=== PATIENT | male | born 1965 | race Hispanic/Latino ===

== ENCOUNTER → 2023-06-26 12:35 | Outpatient (REF) | payer BC, SELFPAY | LOC: HWRAD 12:35 | PROVIDERS: ATTENDING PHYSICIAN Specialist; FAMILY PHYSICIAN Family Medicine | DX: R31.9 Hematuria, unspecified (principal) | CPT/HCPCS: 76770 ==

== ENCOUNTER 2023-07-16 20:02 | Emergency (ER) | payer BC, SELFPAY ==
[2023-07-16 20:07] VITALS: BP 134/95
[2023-07-16 20:26] LABS: % Basophils 0.5 % (0-2); % Eosinophils 0.9 % (0-6); % Immature Granulocytes 0.3 % (0-0.5); % Lymphocytes 25.3 % (20.5-51.1); % Monocytes 9.2 % (1.7-9.3); % Neutrophils 63.8 % (42.2-75.2); Absolute Eosinophils 0.1 10^3/uL (0-0.7); Absolute Lymphocytes 2.2 10^3/uL (1.2-3.4); Absolute Monocytes 0.8 10^3/uL (0.1-0.6); Absolute Neutrophils 5.6 10^3/uL (1.4-6.5); Hemoglobin 16.6 g/dL (13.0-18.0); Mean Corp Hgb Conc. 33.9 g/dL (33.0-37.0); Mean Corpuscular Hgb 29.9 pg (27.0-31.0); Mean Corpuscular Volume 88.1 fL (80.0-94.0); Mean Platelet Volume 9.3 fL (7.4-10.4); Nucleated Red Blood Cells % 0 % (-); Platelet Count 313 10^3/uL (130-400); Red Blood Cell Count 5.56 10^6/uL (4.70-6.10); Red Cell Dist. Width 12.2 % (11.5-14.5); White Blood Cell Count 8.7 10^3/uL (4.8-10.8)
[2023-07-16 20:28] LABS: Urine Albumin 2+ (Neg - Trace); Urine Bilirubin 1+ (Negative); Urine Character Bloody (Clear); Urine Color Red; Urine Glucose Negative (Negative); Urine Ketone 1+ (Negative); Urine Leukocyte 1+ (Negative); Urine Nitrite Negative (Negative); Urine Occult Blood 4+ (Negative); Urine Specific Gravity 1.025 (<1.030); Urine Urobilinogen Negative (Neg - 1+)
[2023-07-16 20:33] LABS: Urine Squamous Cell 0-2 /LPF (Few)
[2023-07-16 20:38] LABS: Urine Red Blood Cell >100 /HPF (0-2)
[2023-07-16 21:08] LABS: ALT (SGPT) 19 U/L (0-50); AST (SGOT) 31 U/L (17-59); Albumin 4.7 g/dl (3.5-5.0); Alkaline Phosphatase 92 U/L (38-126); Blood Urea Nitrogen 28 mg/dl (9-20); Carbon Dioxide 26 mmol/L (22-30); Chloride 100 mmol/L (98-107); Glucose 97 mg/dl (70-99); Sodium 134 mmol/L (135-145); Total Bilirubin 0.8 mg/dl (0.2-1.3); Total Protein 7.6 g/dl (6.3-8.2); eGFR 53.96
[2023-07-17 00:18] VITALS: BMI 23.8
[2023-07-17 00:20] VITALS: BP 125/91
--- NOTE | 2023-07-17 00:28 | ED.GENMED ---
History of Present Illness
General
Chief Complaint: Urinary Symptoms
Source: patient
Exam Limitations: none
Time Seen by Provider: 07/16/23 23:59
Nursing documentation reviewed up to this point in time: agreed with
Travel History
Have you had any contact with someone who has COVID-19?: No
Do you have any symptoms of coronavirus? Fever > 100 degrees, chills, cough, shortness of breath, sore throat, loss of taste or smell, muscle aches, or headache?: No
History of Present Illness
History of Present Illness:
Patient is a 58-year-old male who presents to the emergency department with hematuria that started approximately a week ago but today had clots. Patient has a vague low back pain. Patient denies fever chills, chest pain, shortness of breath,
abdominal pain, nausea, vomiting or diarrhea. Patient denies any frequency, urgency or dysuria. Patient denies any flank pain. Patient denies any previous history of similar episodes. Patient denies smoking. Patient denies any weight loss or
loss of appetite.
Past History
Past History
ED Past Medical History: None
Social History
Tobacco: Non-smoker
Personal:
Living: with family
Employment: Employed
Review of Systems
Review of Systems
All Other Systems: ROS reviewed and negative except as documented in HPI and ROS
Constitutional: Reports no symptoms
EENT: Reports no symptoms
Respiratory: Reports no symptoms
Cardiac: Reports no symptoms
ABD/GI: Reports no symptoms
: Reports bleeding; Denies dysuria, frequency, flank pain, urgency, dark urine or discharge
Musculoskeletal: Reports back pain
Skin: Reports no symptoms
Neurological: Reports no symptoms
Hematologic/Lymphatic: Denies bruising
Psychiatric: Reports no symptoms
Phy Exam
Physical Exam
Physical Exam:
Physical Exam
General: No apparent distress, alert and appropriate, well nourished, well hydrated
HENT: Normocephalic, supple with no lymphadenopathy, no thyromegaly
Eyes: Clear sclera, conjuctiva without injection
Heart: Regular rhythm and rate. No S3, S4. No murmur.
Lungs: No respiratory distress, no stridor, lung sounds clear and equal bilaterally
Abdomen: Soft, nontender, no organomegaly, no CVA tenderness, BS good
Neuro: Alert and oriented x 3, CN II - XII intact, no motor focality, no cerebellar dysfunction
Skin: no rash
Psychiatric: well kept. interactive and cooperative
Extremities: No edema, cyanosis, tenderness, Good and equal peripheral pulses.
Scores
Heart Failure Risk
Heart Failure Risk Score: Not Applicable
Heart Score for Chest Pain Patients
STEMI patient?: Not applicable
Withdrawal Assessment of Alcohol
Withdrawal Assessment Completed?: Not applicable
Course
Orders/Labs/Results
Orders:
Orders
07/16/23 20:20
CMP [Comprehensive Metabolic Panel] Urgent
Complete Blood Count/With Diff Urgent
Urinalysis Reflex To Culture Urgent
Date Specimen was Collected: 07/16/23
Time Specimen was Collected: 20:10
Urine Microscopic Reflex Cult Urgent
Urine Culture Urgent
JOHN Source: U
Specimen Description:
Date Specimen was Collected: 07/16/23
Time Specimen was Collected: 20:10
07/17/23 00:28
CT Abd/pel Without Iv Or Oral Urgent
Comment:
Reason For Exam: hematuria with back pain
Abnormal Lab Results
07/16/23
20:20
Absolute Monos (auto) 0.8 H 10^3/uL
(0.1-0.6)
Sodium 134 L mmol/L
(135-145)
BUN 28 H mg/dl
(9-20)
Creatinine 1.5 H mg/dL
(0.7-1.3)
Urine Ketones 1+ A
(Negative)
Ur Occult Blood Reflex 4+ A
(Negative)
Urine Bilirubin 1+ A
(Negative)
Leukocyte Esterase Rfl 1+ A
(Negative)
Urine RBC >100 A /HPF
(0-2)
Urine Albumin (Reflex) 2+ A
(Neg - Trace)
07/16/23 20:20
07/16/23 20:20
Vital Signs
Initial and Last Documented VS:
Initial Vital Signs
Temp Pulse Resp BP Pulse Ox
98.0 F 74 16 134/95 98
07/16/23 20:07 07/16/23 20:07 07/16/23 20:07 07/16/23 20:07 07/16/23 20:07
Last Documented Vital Signs
Temp Pulse Resp BP Pulse Ox
98.0 F 65 16 125/91 97
07/16/23 20:07 07/17/23 00:20 07/16/23 20:07 07/17/23 00:20 07/17/23 00:20
*Radiology
Radiology exam reviewed: radiology read reviewed (Unremarkable)
*Pulse Oximetry
Patient hypoxic: no
*EKG
Interpreted by ED Provider?: NA
*Bull Gang Supervisor Interpretation
Rate: Bull Gang Supervisor- N/A
*Critical Care Note
Total Time (30-74mins, 75-104mins- exclusive of procedures): Not Applicable
Update Note
Update Note:
Workup unremarkable. Will refer to urology
ED Attending Note
-
Portions of this chart may have been created with voice recognition software.� Occasional wrong word or��sound alike� substitutions may have occurred due to the inherent limitations of voice recognition software.
Discharge Plan
Departure
Patient Disposition: Home (Routine Discharge)
Date of Disposition: 07/17/23
Time of Disposition: 02:01
Patient with high blood pressure during this ER visit?: No
Condition: Good
Covid-19: Not Applicable
Discharge Problem:
Hematuria
Instructions: Blood in the Urine (Hematuria), Adult (DC)
Prescriptions:
No Action
No Current Medications
0
Referrals:
Cesar Owen MD [Active] - Call in 1-3 days for appt
Heri Grace MD [Family Provider] -
Activity Restrictions/Additional Instructions:
Make sure to drink plenty of fluids. Any difficulty urinating or worsening of bleeding please return.
Interventions
Interventions:
*Risk Screen - Suicide Last Done: 07/17/23 00:18
*General Assessment Last Done: 07/17/23 00:18
*Neglect/Abuse Screening Last Done: 07/17/23 00:18
ED- Fall Risk Assessment Last Done: 07/17/23 00:18
*ED COVID-19 Vaccine History Last Done: 07/16/23 20:07
ED-Male Genitourinary Assessment Last Done: 07/17/23 00:18
Discharge Date and Time
Print Language: KOSOVAN
--- NOTE | 2023-07-17 01:48 | EDRN ---
Dr. Cortes at bedside going over results
== END 2023-07-17 02:18 | disposition home or self-care (01) ==
LOC: EMR 20:02
PROVIDERS: EMERGENCY PHYSICIAN Emergency Medicine; FAMILY PHYSICIAN Family Medicine
DX: R31.9 Hematuria, unspecified (principal)
CPT/HCPCS: 99284; 74176; 80053; 81003; 81015; 85025; 87086

== ENCOUNTER 2023-07-25 06:23 | Inpatient (IN) | payer BC, SELFPAY ==
[2023-07-25] VITALS (27 sets, daily range): BP systolic 110–159; BP diastolic 70–105; BMI 24.5
[2023-07-25 00:32] LABS: % Basophils 0.5 % (0-2); % Eosinophils 0.5 % (0-6); % Immature Granulocytes 1.6 % (0-0.5); % Lymphocytes 20.2 % (20.5-51.1); % Monocytes 7.9 % (1.7-9.3); % Neutrophils 69.3 % (42.2-75.2); Absolute Basophils 0.1 10^3/uL (0-0.2); Absolute Eosinophils 0.1 10^3/uL (0-0.7); Absolute Immature Granulocytes 0.2 10^3/uL (0-0.05); Absolute Lymphocytes 2.6 10^3/uL (1.2-3.4); Absolute Neutrophils 8.8 10^3/uL (1.4-6.5); Hemoglobin 15.5 g/dL (13.0-18.0); Mean Corpuscular Hgb 29.7 pg (27.0-31.0); Mean Platelet Volume 9.7 fL (7.4-10.4); Nucleated Red Blood Cells % 0 % (-); Platelet Count 284 10^3/uL (130-400); Red Blood Cell Count 5.22 10^6/uL (4.70-6.10); Red Cell Dist. Width 12.2 % (11.5-14.5); White Blood Cell Count 12.7 10^3/uL (4.8-10.8)
[2023-07-25 01:03] LABS: ALT (SGPT) 19 U/L (0-50); AST (SGOT) 30 U/L (17-59); Albumin 4.4 g/dl (3.5-5.0); Alkaline Phosphatase 85 U/L (38-126); Blood Urea Nitrogen 24 mg/dl (9-20); Calcium 9.8 mg/dl (8.4-10.2); Carbon Dioxide 29 mmol/L (22-30); Chloride 99 mmol/L (98-107); Glucose 120 mg/dl (70-99); Lipase 111 U/L (23-300); Potassium 4.7 mmol/L (3.5-5.1); Sodium 134 mmol/L (135-145); Total Bilirubin 0.6 mg/dl (0.2-1.3); Total Protein 7.3 g/dl (6.3-8.2); eGFR > 60.00
[2023-07-25] MEDS: MORPHINE SULFATE 4 MG IV (02:10)
[2023-07-25] MEDS: ZOFRAN 4 MG IV (02:11)
--- NOTE | 2023-07-25 02:51 | ED.GENMED ---
History of Present Illness
<JUAN C Whitley - Last Filed: 07/25/23 03:37>
General
Chief Complaint: Abdominal Pain
Source: patient
Time Seen by Provider: 07/25/23 02:50
Travel History
Have you had any contact with someone who has COVID-19?: No
Do you have any symptoms of coronavirus? Fever > 100 degrees, chills, cough, shortness of breath, sore throat, loss of taste or smell, muscle aches, or headache?: No
History of Present Illness
History of Present Illness:
Pt is a 58 year old male with a PMHx of hypercholesteremia presenting with abdominal pain and nausea/vomiting. He states the pain began around 8:30 pm. The last meal he had was around noon and was a cheese steak. He had a Pepcid when the pain began
but it did not help. The pain is consistently a 10/10, even after morphine. He states he vomited several times this evening but has not vomited since receiving Zofran here. He states his pain is 'everywhere' in his abdomen and radiates to both
sides. He reports diaphoresis when pain began. He states his last bowel movement this morning. He denies fever, chills, sick contacts, recent travel, dizziness, headache, chest pain, arm pain, jaw pain, SOB, dysuria, hematuria. He denies PMHx of
gallstones or pancreatitis.
Past History
<JUAN C Whitley - Last Filed: 07/25/23 03:37>
Past History
ED Past Medical History: None
Social History
Tobacco: Non-smoker
Personal:
Living: with family
Employment: Employed
Review of Systems
<JUAN C Whitley - Last Filed: 07/25/23 03:37>
Review of Systems
All Other Systems: Not applicable
Constitutional: Reports no symptoms
EENT: Reports no symptoms
Respiratory: Reports no symptoms
Cardiac: Reports diaphoresis
ABD/GI: Reports abdominal pain, nausea and vomiting
: Reports flank pain
Musculoskeletal: Reports no symptoms
Skin: Reports no symptoms
Neurological: Reports no symptoms
Endocrine: Reports no symptoms
Hematologic/Lymphatic: Reports no symptoms
Psychiatric: Reports no symptoms
Phy Exam
<JUAN C Whitley - Last Filed: 07/25/23 03:37>
General Physical Exam
General Presentation: moderate distress
General age: appears stated age
General Skin: warm and dry
General Habitus: normal
General Mental: alert
General Hydration: dry mucous membranes
ENT Exam
ENT Exam: normocephalic and other (no scleral icterus )
Eye Exam
Eye Exam: PERRL
Cardiovascular Exam
Cardiovascular Exam: regular rate/rhythm, no edema, no gallop, no murmur and normal peripheral pulses
Pulmonary Exam
Pulmonary Exam: lungs clear, no respiratory distress, no rales, no crackles, no rhonchi, no wheezing and no cough
Gastrointestinal Exam
Gastrointestinal Exam: no pulsatile mass, no cva tenderness, guarding and tender
Palpation: left upper quadrant: Severe tenderness and generalized: Mild tenderness
Neurological Exam
Neurological Exam: alert and oriented x3
Musculoskeletal Exam
Musculoskeletal Exam: other (no back pain)
Skin Exam
Skin Exam: normal color and warm/dry
Psychiatric Exam
Psychiatric Exam: normal mood/affect
Course
<JUAN C Whitley - Dipak Filed: 07/25/23 03:37>
Orders/Labs/Results
Orders:
Orders
07/25/23 00:19
IV Insert/Care/Rem.- Treatment PRN
07/25/23 00:22
Complete Blood Count/With Diff Urgent
Comprehensive Metabolic Panel Urgent
Lipase Urgent
07/25/23 02:08
Morphine Sulfate 4 mg .ROUTE .STK-MED ONE
Ondansetron Injectable [Zofran] 4 mg .ROUTE .STK-MED ONE
07/25/23 02:10
Morphine Sulfate 4 mg IV NOW STA
Ondansetron Injectable [Zofran] 4 mg IV NOW STA
07/25/23 03:09
0.9% Sodium Chloride 1000 ml [Nss] 1,000 ml IV BOLUS
07/25/23 03:27
CT Abd/pelvis W Iv Cont Urgent
Comment:
Reason For Exam: abd pain
HYDROmorphone [Dilaudid] 0.5 mg IV NOW STA
07/25/23 03:45
Lactic Acid Urgent
Abnormal Lab Results
07/25/23
00:22
WBC 12.7 H 10^3/uL
(4.8-10.8)
Abs Immat Gran (auto) 0.2 H 10^3/uL
(0-0.05)
Absolute Neuts (auto) 8.8 H 10^3/uL
(1.4-6.5)
Absolute Monos (auto) 1.0 H 10^3/uL
(0.1-0.6)
Immature Gran % 1.6 H %
(0-0.5)
Lymphocytes % 20.2 L %
(20.5-51.1)
Sodium 134 L mmol/L
(135-145)
BUN 24 H mg/dl
(9-20)
Glucose 120 H mg/dl
(70-99)
07/25/23 00:22
07/25/23 00:22
Vital Signs
Initial and Last Documented VS:
Initial Vital Signs
Temp Pulse Resp BP Pulse Ox
98.0 F 64 19 118/73 97
07/25/23 00:16 07/25/23 00:16 07/25/23 00:16 07/25/23 00:16 07/25/23 00:16
Last Documented Vital Signs
Temp Pulse Resp BP Pulse Ox
98.0 F 63 25 125/83 97
07/25/23 00:16 07/25/23 04:00 07/25/23 03:29 07/25/23 04:00 07/25/23 04:00
<Jose Black, DO - Last Filed: 07/25/23 04:38>
Orders/Labs/Results
Orders:
Orders
07/25/23 00:19
IV Insert/Care/Rem.- Treatment PRN
07/25/23 00:22
Complete Blood Count/With Diff Urgent
Comprehensive Metabolic Panel Urgent
Lipase Urgent
07/25/23 02:08
Morphine Sulfate 4 mg .ROUTE .STK-MED ONE
Ondansetron Injectable [Zofran] 4 mg .ROUTE .STK-MED ONE
07/25/23 02:10
Morphine Sulfate 4 mg IV NOW STA
Ondansetron Injectable [Zofran] 4 mg IV NOW STA
07/25/23 03:09
0.9% Sodium Chloride 1000 ml [Nss] 1,000 ml IV BOLUS
07/25/23 03:27
CT Abd/pelvis W Iv Cont Urgent
Comment:
Reason For Exam: abd pain
HYDROmorphone [Dilaudid] 0.5 mg IV NOW STA
07/25/23 03:45
Lactic Acid Urgent
Abnormal Lab Results
07/25/23
00:22
WBC 12.7 H 10^3/uL
(4.8-10.8)
Abs Immat Gran (auto) 0.2 H 10^3/uL
(0-0.05)
Absolute Neuts (auto) 8.8 H 10^3/uL
(1.4-6.5)
Absolute Monos (auto) 1.0 H 10^3/uL
(0.1-0.6)
Immature Gran % 1.6 H %
(0-0.5)
Lymphocytes % 20.2 L %
(20.5-51.1)
Sodium 134 L mmol/L
(135-145)
BUN 24 H mg/dl
(9-20)
Glucose 120 H mg/dl
(70-99)
07/25/23 00:22
07/25/23 00:22
Vital Signs
Initial and Last Documented VS:
Initial Vital Signs
Temp Pulse Resp BP Pulse Ox
98.0 F 64 19 118/73 97
07/25/23 00:16 07/25/23 00:16 07/25/23 00:16 07/25/23 00:16 07/25/23 00:16
Last Documented Vital Signs
Temp Pulse Resp BP Pulse Ox
98.0 F 63 25 125/83 97
07/25/23 00:16 07/25/23 04:00 07/25/23 03:29 07/25/23 04:00 07/25/23 04:00
<JUAN C Whitley - Last Filed: 07/25/23 03:37>
MDM/Problems Addressed
Differential Diagnosis Includes:
small bowel obstruction, pancreatitis, gastritis, cholecystitis
MDM/Problems Addressed:
abdominal pain with nausea/vomiting
<JUAN C Whitley - Last Filed: 07/25/23 03:37>
*Pulse Oximetry
Patient hypoxic: no
*Critical Care Note
Total Time (30-74mins, 75-104mins- exclusive of procedures): Not Applicable
ED Attending Note
<JUAN C Whitley - Last Filed: 07/25/23 03:37>
-
Portions of this chart may have been created with voice recognition software.� Occasional wrong word or��sound alike� substitutions may have occurred due to the inherent limitations of voice recognition software.
<Jose Black DO - Last Filed: 07/25/23 04:38>
ED Attending Note
Patient seen and examined by attending physician: Yes
I performed the substantive portion of visit, reviewed & personally made and approve the management plan that is documented in note by myself or ARIANA.: Yes
ED Attending Note:
Pleasant 58-year-old male presents with diffuse abdominal pain that began after eating a cheese steak. He states this Sunday. He took Pepcid but it did not help. Patient denies chest pain or shortness of breath. Patient was seen in conjunction
with the PA student. I have reviewed and agree with the history and treatment plan presented. On my independent physical exam, patient is awake, alert, and oriented x3, moderate acute distress. Heart is regular rate and rhythm. Abdomen is firm
with diffuse tenderness to palpation and guarding present.
Discharge Plan
Departure
Patient Disposition: Admit
Date of Disposition: 07/25/23
Time of Disposition: 04:37
Admit to: Telemetry
Presentation/result/management discussed w/ accepting MD/DO: Hospitalist
Discharge Problem:
SBO (small bowel obstruction)
Prescriptions:
No Action
No Current Medications
0
Referrals:
Heri Grace MD [Family Provider] -
Interventions
Interventions:
*Risk Screen - Suicide Last Done: 07/25/23 00:16
*General Assessment Last Done: 07/25/23 00:16
*Neglect/Abuse Screening Last Done: 07/25/23 00:16
ED- Fall Risk Assessment Last Done: 07/25/23 02:06
*ED COVID-19 Vaccine History Last Done: 07/25/23 00:16
SM-Qtgemn-Wjryjfwkag Assessment Last Done: 07/25/23 02:06
Discharge Date and Time
Print Language: ESTONIAN
[2023-07-25] MEDS: DILAUDID 0.5 MG IV ×2 (03:44→10:23)
[2023-07-25] MEDS: NSS 1000 IV ×3 (03:45→21:42)
[2023-07-25 04:08] LABS: Lactic Acid 1.1 mmol/L (0.7-2.0)
--- NOTE | 2023-07-25 05:50 | HPS.HSE ---
Family Physician
-
Family Physician: Heri Grace
Chief Complaint
-
Abd Pain, N/V
History of Present Illness
Patient is a 58y M with no significant PMH who presents to ED complaining of abdominal pain with N/V. Patient states that he was feeling fairly well until this evening around 8:30 PM. He developed crampy mid-abdominal pain followed by multiple
episodes of non-bloody, bilious emesis. Patient presented to the ED for further evaluation.
CT scan done in the ED shows closed-loop SBO with bowel wall edema / thickening and stranding of the mesentery.
Patient continued to complain of pain and nausea here in the ED.
He denies any prior history of similar symptoms.
Medical History
Past Medical History
Past Medical History: Reports Other
Additional Past Medical History:
Urethral Injury
Past Surgical History: Reports Other
Additional Past Surgical History:
Urethra Repair
L ACL Repair
Left Inguinal Hernia Repair
Social History
Tobacco: Non-smoker
Alcohol: Occasional (Very rare)
Drug: None
Family History
Family History: Other (Father: Prostate Cancer, CAD)
Allergies / Home Medications
Allergies reflects when Allergies were last updated in [employer].
Home Medications with original date entered in [employer]
Allergy/Medication List:
Allergies
Allergy/AdvReac Type Severity Reaction Status Date / Time
No Known Allergies Allergy Verified 07/25/23 00:16
Home Medications
No Meds [No Current Medications] 10/29/15
Review of Systems
-
History Source: Patient
A 12 point ROS was completed and negative except as noted: Yes
Constitutional: Denies Fever or Chills
Respiratory: Denies Cough or Trouble Breathing
Cardiac: Reports Diaphoresis; Denies Chest Pain or Palpitations
Abdomen/GI: Reports Abdominal Pain, Nausea and Vomiting; Denies Diarrhea or Constipated
: Denies Dysuria or Frequency
Neurological: Denies Dizzy or Headache
Psych: Denies Depression or Anxiety
Physical Exam
Vital Signs
Vital Signs
Temp Pulse Resp BP Pulse Ox
98.0 F 65 25 129/83 98
07/25/23 00:16 07/25/23 05:00 07/25/23 03:29 07/25/23 05:00 07/25/23 05:00
Physical Exam
General: Other (58y M in moderate distress due to abdominal pain / nausea.)
HEENT: Moist mucous membranes
Respiratory: Clear; No Wheezes, Rales or Rhonchi
Cardiac: S1/S2 and Regular Rhythm; No Murmur
GI: Other (Soft, diffusely tender. High-pitched bowel sounds.)
Musculoskeletal: No Clubbing, No Cyanosis and No Edema
Neuro: AO x 3
Laboratory Results
-
07/25/23 00:22
07/25/23 00:22
Laboratory Results
Lactic Acid 1.1 mmol/L (0.7-2.0) 07/25/23 03:45
Total Bilirubin 0.6 mg/dl (0.2-1.3) 07/25/23 00:22
AST 30 U/L (17-59) 07/25/23 00:22
ALT 19 U/L (0-50) 07/25/23 00:22
Alkaline Phosphatase 85 U/L (38-126) 07/25/23 00:22
Lipase 111 U/L (23-300) 07/25/23 00:22
Impression/Plan
-
A/P: Patient is a 58y M with no significant PMH who presents to ED complaining of abdominal pain with N/V.
SBO
- Admit for further evaluation and treatment.
- Patient is quite uncomfortable appearing with abdominal tenderness and imaging suggesting closed loop obstruction with bowel wall edema / mesenteric stranding.
- Place NG now for decompression.
- Surgery evaluation for possible intervention if symptoms do not promptly improve with supportive care.
- Continue antiemetics, pain control, etc.
Recent hematuria
- Patient seen in the ED 07/16 with hematuria.
- CT scan was also done at that time and was normal.
- patient reports prior history of hematuria and notes he required urethral repair at that time.
- Bleeding resolved after a few days. Has not recurred.
- Monitor for any new / recurrent symptoms.
DVT Prophylaxis: SCDs
Code Status: Full
[2023-07-25] MEDS: DILAUDID 1 MG IV (06:33)
--- NOTE | 2023-07-25 07:51 | W.PN.HOSP.TC ---
Today's Communication/Plan
-
Surgical eval
Assessment / Plan
Assessment / Plan
58-year-old male presented with abdominal pain with nausea and vomiting.
QT-dlqqwz-fxzl small bowel obstruction likely secondary to internal hernia with adjacent transition point in the mid right upper abdomen closed-loop segment is not significant extended but demonstrates stranding MESENTERY and bowel wall thickening
likely representing venous edema. Bowel upstream of obstruction as distended 3.2 cm without significant ischemic changes. Downstream small bowel is essentially fully decompressed. No pneumatosis or pneumoperitoneum is present. Benign hemangioma
of the liver. Mild steatosis. Small renal cysts
Pt uncomfortable, from sore throat because of NG tube
Cardiovascular system S1-S2 appreciated
Chest clear to auscultation
Abdomen normal bowel sounds
Extremities no edema
# Small bowel [id number]-[id number]-[id number]
Continue NG tube
May need surgery
Continue IV fluids n.p.o., antiemetics
# Recent hematuria- None now per Pt
# Mild hyponatremia-Follow
# Steatosis of the liver per CT
# DVT prophylaxis-SCDs for now
If no hematuria use Lovenox
# Full code
D/W RN
D/W at bed side
Anticipated Discharge: > 48 hours
Subjective/Interval History
-
Date of Service: July 25, 2023
Objective Data
-
Labs:
Laboratory Results
07/25/23
00:22
WBC 12.7 H
Hgb 15.5
Hct 47.0
Plt Count 284
Sodium 134 L
Potassium 4.7
Chloride 99
Carbon Dioxide 29
BUN 24 H
Creatinine 1.3
Glucose 120 H
Calcium 9.8
Total Bilirubin 0.6
AST 30
ALT 19
Alkaline Phosphatase 85
Vital Signs:
Vital Signs
Temp Pulse Resp BP Pulse Ox
98.0 F 56 25 111/74 97
07/25/23 00:16 07/25/23 07:00 07/25/23 03:29 07/25/23 07:00 07/25/23 07:00
[2023-07-25] MEDS: PROTONIX IV 40 MG IV (08:20)
[2023-07-25] MEDS: NSS (PRESERVATIVE FREE) 10 ML IV (08:22)
--- NOTE | 2023-07-25 08:36 | CON.GS ---
Consultation
-
Requesting Provider: Alfred
Performing Provider: Mitch
Reason for Consultation: SBO
Medical History
-
Chief Complaint: Abd pain
History of Present Illness:
58M with acute onset generalized abd pain that began last night around 8:30, with sudden onset and progression of pain, a/w n/v. Last BM yesterday am, reportedly normal. Denies f/c. Denies exacerbating/relieving factors. Recent ED visit last week
for painless hematuria, he reports this is continuing on an intermittent basis. He has an outpt f/u appt with urology later this month.
Past Medical History
Past Medical History: Other (hematuria)
Past Surgical History: Hernia Repair (Left IHR), Orthopedic (left ACL repair) and Urological (urethral repair)
Social History
Tobacco: Non-Smoker
Alcohol: Occasional
Drug: None
Personal:
Living: With Family
Family History
Family History: Reviewed & Noncontributory
Allergies / Home Medications
Allergy/AdvReac Type Severity Reaction Status Date / Time
No Known Allergies Allergy Verified 07/25/23 00:16
�Medication �Instructions �Recorded �Confirmed �Type
famotidine 20 mg tablet (Pepcid) 20 mg PO DAILYPRN PRN gerd 07/25/23 07/25/23 History
turmeric 400 mg capsule 400 mg PO DAILY 07/25/23 07/25/23 History
Review of Systems
-
A 10 point review of systems was completed, and was negative except as per HPI.
Physical Exam
Vital Signs
Temp Pulse Resp BP Pulse Ox
98.4 F 66 25 133/86 97
07/25/23 08:33 07/25/23 08:30 07/25/23 03:29 07/25/23 08:23 07/25/23 08:30
04/09/24 04/10/24 04/11/24
06:59 06:59 06:59
Actual Weight 73 kg
Body Mass Index (BMI) 24.5
Lab Results
07/25/23 00:22
07/25/23 00:22
WBC 12.7 10^3/uL (4.8-10.8) H 07/25/23 00:22
Hgb 15.5 g/dL (13.0-18.0) 07/25/23 00:22
Hct 47.0 % (39.0-52.0) 07/25/23 00:22
Plt Count 284 10^3/uL (130-400) 07/25/23 00:22
Abs Immat Gran (auto) 0.2 10^3/uL (0-0.05) H 07/25/23 00:22
Neutrophils % 69.3 % (42.2-75.2) 07/25/23 00:22
Physical Exam
General: Other (mild distress)
HEENT: Normocephalic and Anicteric
GI: Soft, Non Distended and Tender (mild/mod ttp with palp diffusely, worst to RUQ/epigastrium)
Skin: Warm and Dry
Neuro: AO x 3
Data Reviewed
-
CT Scan: Image Personally Visualized and interpreted, Report Reviewed by me, Discussed with Physician, Discussed with Patient and Discussed with Family
Labs: Labs Reviewed by me, Discussed with Physician, Discussed with Patient and Discussed with Family
Old Records: Reviewed
Assessment / Plan
-
58M with SBO, concern for closed loop
AFVSS, pain not well controlled with meds
Mild leukocytosis
CT A/P with distended sb loops with swirl sign, transition point appears to be in the right upper quadrant, some mesenteric edema, no pneumatosis, no PV gas, no free air
Plan:
OCTOR for dx lap, poss ex lap, poss SBR
Cont NGT decompression and IVF resusc
Cefotetan OCTOR
Informed consent obtained, d/w patient and likely course including possible ex lap, poss bowel resection, poss post-op ileus, risk of leak or stricture from anastomosis if required, risk of injury to intra-abdominal structures, risk of bleeding
and infection, risk of need for further procedures. Pt and verbalized understanding and agreed to proceed.
--- NOTE | 2023-07-25 10:50 | EDRN ---
Report given to IJEOMA Rosado in the OR. Patient taken to the OR with NSS infusing by electronics tech. with patient.
[2023-07-25] MEDS: STERILE WATER FOR INJECTION 10 ML IV (12:01)
[2023-07-25] MEDS: CEFOTAN 2000 MG IV (12:01)
--- NOTE | 2023-07-25 12:25 | OR.RPT ---
Operative Report
Operative Report
Primary Surgeon: Mitch
Assisting: Audrey PAGAN
Pre-op Diagnosis: Closed loop small bowel obstruction
Post-op Diagnosis: Same
Procedure Performed: Diagnostic laparoscopy, lysis of adhesions
Anesthesia Type: GETA
Specimen / Cultures: None
Estimated Blood Loss: 3cc
Complications: None immediate
Operative Findings: Single band omental adhesion pinning down a loop of small bowel at the mid upper abdomen lysed with ligasure; all bowel viable
Date of Surgery: 07/25/23
Indications: This 58M developed acute onset abdominal pain and on workup was found to have a closed loop small bowel obstruction. Diagnostic laparoscopy with possible exploratory laparotomy and possible bowel resection was planned.
Description of procedure: The patient was placed on the operating table in the supine position. General anesthesia was induced. A time-out was completed verifying correct patient, procedure, site, positioning, and special equipment prior to
beginning this procedure. An orogastric tube was placed. The abdomen was prepped and draped in the usual sterile fashion. A stab incision was made in left upper quadrant and the Veress needle was inserted. Proper position was confirmed by aspiration
and saline meniscus test. The abdomen was insufflated with carbon dioxide to a pressure of 12 mmHg. The patient tolerated insufflation well.
A 5mm optical trocar was then inserted at the left lower quadrant. The laparoscope was inserted and the abdomen inspected. No injuries from initial trocar placement or Veress needle insertion were noted. Additional trocars were then inserted in the
following locations: a 5mm trocar a hand's breadth above the initial trocar along the anterior axillary line and a 5-mm trocar midline in the left suprapubic space. The abdomen was inspected and dilated small bowel was noted. The table was placed in
right side up position. The dilated small bowel was run in one direction until the dilated caliber tapered to decompressed loops, no transition point was identified at this location. The bowel was run in the opposite direction until a band adhesion
was identified that was pinning down the closed loop of small bowel. The bowel was mildly hyperemic in patchy areas but was otherwise grossly normal appearing. The band adhesion was lysed using the ligasure device taking care to protect surrounding
bowel. The bowel was then closely inspected and there was no evidence of ongoing ischemia or bowel necrosis. Peristalsis was confirmed by grasping the bowel at various points along the affected segment. The scope was removed and abdomen allowed to
collapse. The trocars were removed under vision and noted to be hemostatic. The skin was closed with 4-0 monocryl sutures.
The patient tolerated the procedure well and was taken to the postanesthesia care unit in stable condition.
[2023-07-26 04:07] VITALS: BP 135/87
[2023-07-26] MEDS: NSS 1000 IV (05:05)
[2023-07-26 07:30] VITALS: BP 145/91
[2023-07-26 08:39] LABS: Hematocrit 48.3 % (39.0-52.0); Hemoglobin 15.8 g/dL (13.0-18.0); Mean Corp Hgb Conc. 32.7 g/dL (33.0-37.0); Mean Corpuscular Hgb 29.6 pg (27.0-31.0); Mean Corpuscular Volume 90.6 fL (80.0-94.0); Mean Platelet Volume 10.2 fL (7.4-10.4); Platelet Count 225 10^3/uL (130-400); Red Blood Cell Count 5.33 10^6/uL (4.70-6.10); Red Cell Dist. Width 12.5 % (11.5-14.5); White Blood Cell Count 12.8 10^3/uL (4.8-10.8)
[2023-07-26 08:56] LABS: Blood Urea Nitrogen 13 mg/dl (9-20); Calcium 9.8 mg/dl (8.4-10.2); Carbon Dioxide 27 mmol/L (22-30); Chloride 100 mmol/L (98-107); Estimated Creatinine Clearance 72 ml/min; Glucose 86 mg/dl (70-99); Potassium 4.1 mmol/L (3.5-5.1); Sodium 138 mmol/L (135-145); eGFR > 60.00
--- NOTE | 2023-07-26 08:57 | W.PN.GS2 ---
Today's Communication / Plan
-
`
Assessment / Plan
-
Assessment: 58 y/o male POD#1 s/p lap MAMADOU for closed loop SBO
AFVSS
NGT removed
+flatus
Plan: NGT out
renewed IVF - but okay to stop if shreya PO well
full liquid diet today
ambulate
Subjective Data
-
Date of Service: July 26, 2023
pt seen and examined
c/o NGT but otherwise feeling okay
no post op pain
no nausea with NGT clamped
+flatus
Objective Data
-
Intake and Output
07/25/23 07/26/23 07/27/23
06:59 06:59 06:59
Intake Total 1810 / 1810
Output Total 2200 / 2200
Balance -390 / -390
Intake:
Oral fluids 960 / 960
IV fluids (Total) 850 / 850
NSS 150 / 150
normosol 150 / 150
Output:
Urine, Voided 2200 / 2200
Vital Signs
Temp Pulse Resp BP Pulse Ox
98.3 F 72 16 145/91 98
07/26/23 07:30 07/26/23 07:30 07/26/23 07:30 07/26/23 07:30 07/26/23 07:30
Lab Results
07/26/23 07:56
07/26/23 07:56
Calcium 9.8 mg/dl (8.4-10.2) 07/26/23 07:56
Total Bilirubin 0.6 mg/dl (0.2-1.3) 07/25/23 00:22
AST 30 U/L (17-59) 07/25/23 00:22
ALT 19 U/L (0-50) 07/25/23 00:22
Alkaline Phosphatase 85 U/L (38-126) 07/25/23 00:22
Total Protein 7.3 g/dl (6.3-8.2) 07/25/23 00:22
Albumin 4.4 g/dl (3.5-5.0) 07/25/23 00:22
Physical Exam
-
NAD AAOx3
ABD: soft, ND, incisions with glue dressings
NGT returned to sxn - no residual
[2023-07-26] MEDS: PROTONIX IV 40 MG IV (11:22)
[2023-07-26] MEDS: NSS (PRESERVATIVE FREE) 10 ML IV (11:23)
[2023-07-26] MEDS: FLUSH (NSS) 1 FLUSH IV (11:25)
[2023-07-26 11:30] VITALS: BP 149/91
--- NOTE | 2023-07-26 14:42 | W.PN.HOSP.TC ---
Today's Communication/Plan
-
Repeat U/A
Ambulate
Assessment / Plan
Assessment / Plan
58-year-old male presented with abdominal pain with nausea and vomiting.
RL-kvvehx-giqg small bowel obstruction likely secondary to internal hernia with adjacent transition point in the mid right upper abdomen closed-loop segment is not significant extended but demonstrates stranding MESENTERY and bowel wall thickening
likely representing venous edema. Bowel upstream of obstruction as distended 3.2 cm without significant ischemic changes. Downstream small bowel is essentially fully decompressed. No pneumatosis or pneumoperitoneum is present. Benign hemangioma
of the liver. Mild steatosis. Small renal cysts
CVS: S1-S2 normal
Chest: CTA B/L
Abdomen: Soft, lap wounds with glue stable, Bowel sounds present
Extremities: No edema, normal pulses
# Small bowel [id number]
S/P Diagnostic laparoscopy, lysis of adhesions 07/25/23
On Full Liquids
Had a solid BM
# Recent hematuria- None now per Pt
Rpt U/A
# Mild hyponatremia-Follow
# Steatosis of the liver per CT
# DVT prophylaxis-SCDs for now
If no hematuria use Lovenox
# Full code
Anticipated Discharge: Within 24 hours
Subjective/Interval History
-
Date of Service: July 26, 2023
Objective Data
-
Labs:
Laboratory Results
07/26/23
07:56
WBC 12.8 H
Hgb 15.8
Hct 48.3
Plt Count 225 D
Sodium 138
Potassium 4.1
Chloride 100
Carbon Dioxide 27
BUN 13
Creatinine 1.1
Glucose 86
Calcium 9.8
Vital Signs:
Vital Signs
Temp Pulse Resp BP Pulse Ox
97.8 F 76 16 149/91 97
07/26/23 11:30 07/26/23 11:30 07/26/23 11:30 07/26/23 11:30 07/26/23 11:30
I&O
07/25/23 07/26/23 07/27/23
06:59 06:59 06:59
Intake Total 1810 / 1810
Output Total 2200 / 2200
Balance -390 / -390
[2023-07-26 16:00] VITALS: BP 114/75
[2023-07-26] MEDS: NSS IV ×2 (18:24→18:25)
[2023-07-26 19:00] VITALS: BP 115/78
[2023-07-26 19:36] LABS: Urine Albumin Negative (Neg - Trace); Urine Bilirubin Negative (Negative); Urine Glucose Negative (Negative); Urine Ketone Negative (Negative); Urine Leukocyte Negative (Negative); Urine Nitrite Negative (Negative); Urine Occult Blood Negative (Negative); Urine Urobilinogen Negative (Neg - 1+)
[2023-07-26 19:37] LABS: Urine Character Clear (Clear); Urine Color Yellow
[2023-07-26 23:00] VITALS: BP 112/70
[2023-07-27 03:00] VITALS: BP 109/69
[2023-07-27] MEDS: NSS IV (05:21)
[2023-07-27 07:00] VITALS: BP 138/68
[2023-07-27 08:06] LABS: Hematocrit 49.1 % (39.0-52.0); Hemoglobin 16.4 g/dL (13.0-18.0); Mean Corp Hgb Conc. 33.4 g/dL (33.0-37.0); Mean Corpuscular Hgb 29.9 pg (27.0-31.0); Mean Corpuscular Volume 89.4 fL (80.0-94.0); Mean Platelet Volume 9.8 fL (7.4-10.4); Platelet Count 219 10^3/uL (130-400); Red Blood Cell Count 5.49 10^6/uL (4.70-6.10); Red Cell Dist. Width 12.6 % (11.5-14.5); White Blood Cell Count 8.3 10^3/uL (4.8-10.8)
[2023-07-27] MEDS: PROTONIX IV 40 MG IV (08:33)
[2023-07-27] MEDS: NSS (PRESERVATIVE FREE) 10 ML IV (08:33)
[2023-07-27 08:45] LABS: Blood Urea Nitrogen 13 mg/dl (9-20); Calcium 9.6 mg/dl (8.4-10.2); Carbon Dioxide 29 mmol/L (22-30); Chloride 99 mmol/L (98-107); Estimated Creatinine Clearance 72 ml/min; Glucose 91 mg/dl (70-99); Potassium 4.3 mmol/L (3.5-5.1); Sodium 134 mmol/L (135-145); eGFR > 60.00
--- NOTE | 2023-07-27 09:05 | W.PN.GS2 ---
Today's Communication / Plan
-
advance diet
dispo planning
Assessment / Plan
-
Assessment: 58 y/o male POD#2 s/p lap MAMADOU for closed loop SBO
AFVSS
tolerating liquids
+flatus/BM
Plan: advance to [facility]
stop IVF
ambulate
clear for d/c from surgical standpoint once tolerating diet
Subjective Data
-
Date of Service: July 27, 2023
Patient seen and examined at bedside with Dr. Mclean. Denies n/v. +BM last night, passing flatus. Tolerating diet.
Objective Data
-
Intake and Output
07/26/23 07/27/23 07/28/23
06:59 06:59 06:59
Intake Total 1810 / 1810 1270 / 1270
Output Total 2200 / 2200 250 / 250
Balance -390 / -390 1020 / 1020
Intake:
Oral fluids 960 / 960 1270 / 1270
IV fluids (Total) 850 / 850
NSS 150 / 150
normosol 150 / 150
Output:
Urine, Voided 2200 / 2200 250 / 250
Other:
Number of approximated MODERATE 2
amounts of urine
Vital Signs
Temp Pulse Resp BP Pulse Ox
97.4 F 61 12 138/68 96
07/27/23 07:00 07/27/23 07:00 07/27/23 07:00 07/27/23 07:00 07/27/23 07:00
Lab Results
07/27/23 07:39
07/27/23 07:39
Calcium 9.6 mg/dl (8.4-10.2) 07/27/23 07:39
Total Bilirubin 0.6 mg/dl (0.2-1.3) 07/25/23 00:22
AST 30 U/L (17-59) 07/25/23 00:22
ALT 19 U/L (0-50) 07/25/23:22
Alkaline Phosphatase 85 U/L (38-126) 07/25/23 00:22
Total Protein 7.3 g/dl (6.3-8.2) 07/25/23:22
Albumin 4.4 g/dl (3.5-5.0) 07/25/23 00:22
Physical Exam
-
NAD AAOx3
ABD: soft, ND, incisions with intact glue dressings, minimal incisional tenderness
--- NOTE | 2023-07-27 09:56 | W.PN.HOSP.TC ---
Addendum entered and electronically signed by Zuri Vu MD 07/27/23 10:04:
Pt does desk job
Original Note:
Today's Communication/Plan
-
It tolerating diet , will discharge home today
Assessment / Plan
Assessment / Plan
58-year-old male presented with abdominal pain with nausea and vomiting.
CA-gqcgzj-qawq small bowel obstruction likely secondary to internal hernia with adjacent transition point in the mid right upper abdomen closed-loop segment is not significant extended but demonstrates stranding MESENTERY and bowel wall thickening
likely representing venous edema. Bowel upstream of obstruction as distended 3.2 cm without significant ischemic changes. Downstream small bowel is essentially fully decompressed. No pneumatosis or pneumoperitoneum is present. Benign hemangioma
of the liver. Mild steatosis. Small renal cysts
CVS: S1-S2 normal
Chest: CTA B/L
Abdomen: Soft, lap wounds with glue stable, Bowel sounds present
Extremities: No edema, normal pulses
# Small bowel [id number]
S/P Diagnostic laparoscopy, lysis of adhesions 07/25/23
On solid diet. Feeling good
Had a solid BM yesterday
# Recent hematuria- None now per Pt
Rpt U/A neg
OP Urology follow up
# Mild hyponatremia-Follow
# Steatosis of the liver per CT
# DVT prophylaxis-SCDs for now
Pt ambulatory
# Full code
D/W .
Ok for pt tp go [place]ary to work Sunday from his stance, note give
D/W RN
Anticipated Discharge: Today
Subjective/Interval History
-
Date of Service: July 27, 2023
Objective Data
-
Labs:
Laboratory Results
07/27/23
07:39
WBC 8.3
Hgb 16.4
Hct 49.1
Plt Count 219
Sodium 134 L
Potassium 4.3
Chloride 99
Carbon Dioxide 29
BUN 13
Creatinine 1.1
Glucose 91
Calcium 9.6
Vital Signs:
Vital Signs
Temp Pulse Resp BP Pulse Ox
97.4 F 61 12 138/68 96
07/27/23 07:00 07/27/23 07:00 07/27/23 07:00 07/27/23 07:00 07/27/23 07:00
I&O
07/26/23 07/27/23 07/28/23
06:59 06:59 06:59
Intake Total 1810 / 1810 1270 / 1270
Output Total 2200 / 2200 250 / 250
Balance -390 / -390 1020 / 1020
[2023-07-27 11:00] VITALS: BP 116/76
--- NOTE | 2023-07-27 12:00 | CM ---
Patient seen at bedside. Patient states that he anticipates discharge home today and was able to tolerate his breakfast. Patient stated that he did not have any DME at home. Patient PCP is Dr. Liriano and he uses the [facility] on [address] Patient
anticipates his to provide transportation when discharged. CM will continue to follow for discharge planning needs.
Plan; home with no needs anticipated
[2023-07-27 15:00] VITALS: BP 109/73
--- NOTE | 2023-07-27 16:28 | W.DS.TRANS ---
Addendum entered and electronically signed by Zuri Vu MD 07/27/23 19:00:
Dictation- [id number]
Original Note:
DC Summary - [employer]
-
Discharge Instructions:
Discharge Diagnosis/Procedures Small bowel obstruction, S/P Diagnostic
laparoscopy, lysis of adhesions 07/25/23, Fat in
liver, Hematuria, small cyst in kidney
Diet Low Fiber
Activity No strenuous activity
Additional Activity Avoid lifting more than 20 lbs for the next 2
weeks
Driving Restrictions Do not drive soon after you take Tramadol.
Bathing Restrictions OK to Shower
Wound Care The glue over your incisions will flake off on
its own in 2-3 weeks, avoid picking or scrubbing
off.
Instructions: Low Fiber Diet
Stand-Alone Forms:
Changes to Home Medications: Yes
Discharge Medications:
DC Medications w/original date entered in [facility]
famotidine 20 mg tablet (Pepcid) 20 mg PO DAILYPRN PRN gerd 07/25/23
turmeric 400 mg capsule 400 mg PO DAILY Supplement 07/25/23
acetaminophen 500 mg tablet (Tylenol Extra Strength) 1,000 mg (2 x 500 mg) PO Q6HPRN PRN mild pain #0 tabs 07/27/23
tramadol 50 mg tablet 50 mg PO Q6HPRN PRN moderate pain #20 tabs 07/27/23
Home Medication Changes
new
acetaminophen 500 mg tablet (Tylenol Extra Strength) 1,000 mg (2 x 500 mg) PO Q6HPRN PRN mild pain #0 tabs 07/27/23
tramadol 50 mg tablet 50 mg PO Q6HPRN PRN moderate pain #20 tabs 07/27/23
Pending Results: No
== END 2023-07-27 17:28 | disposition home or self-care (01) | DRG 337 ==
LOC: 4 WEST ACU 06:23
PROVIDERS: ADMITTING PHYSICIAN Hospitalist; ATTENDING PHYSICIAN Hospitalist; CONSULT PHYSICIAN Surgery; EMERGENCY PHYSICIAN Student in an Organized Health Care Education/Training Program; FAMILY PHYSICIAN Family Medicine
PROC: 0DN84ZZ Release Small Intestine, Percutaneous Endoscopic Approach (ICD-10-PCS; 2023-07-25)
DX: K56.50 Intestinal adhesions [bands], unspecified as to partial versus complete obstruction (principal); R31.9 Hematuria, unspecified; N28.1 Cyst of kidney, acquired
CPT/HCPCS: 74018; 74177; 80048; 80053; 81003; 83605; 83690; 85025; 85027; 96361; 96374; 96375; 96376; 99285; Q9967

== ENCOUNTER → 2024-08-25 14:35 | Outpatient (REF) | payer SELFPAY | LOC: HWRAD 14:35 | PROVIDERS: ATTENDING PHYSICIAN Nurse Practitioner Family; FAMILY PHYSICIAN Internal Medicine | DX: E78.2 Mixed hyperlipidemia (principal) | CPT/HCPCS: 75571 ==